=== PATIENT | male | born 1985 | race Caucasian/White ===

== ENCOUNTER 2022-11-10 11:00 | Day surgery (SDC) | payer OTHER ==
[2022-11-10] MEDS ORDERED: EXPAREL 133 MG/10 ML VIAL IJ ONE (11:01)
[2022-11-10] MEDS ORDERED: Pepcid 20 MG VIAL IV ONE ×2 (11:14→11:21)
[2022-11-10] MEDS ORDERED: Reglan 10 MG/2 ML IV ONE (11:14)
[2022-11-10] MEDS ORDERED: Lactated Ringers 1,000 ML IV ONE ×2 (11:21→14:12)
[2022-11-10] MEDS ORDERED: CLINDAMYCIN-D5W 900 MG/50 ML*** 900 MG/50 ML BAG IV ONE (11:21)
[2022-11-10] MEDS ORDERED: Reglan 10 MG/2 ML ONE (11:21)
[2022-11-10] MEDS ORDERED: CLINDAMYCIN-D5W 900 MG/50 ML*** 900 MG/50 ML BAG IV SCH (11:30)
[2022-11-10] MEDS ORDERED: Lactated Ringers 1,000 ML IV SCH (11:30)
--- NOTE | 2022-11-10 11:31 | HP ---
PROCEDURE DATE: 11/10/2022 HISTORY OF PRESENT ILLNESS: 37 year-old gentleman with pain, swelling, redness pilonidal area since , a lot worse now. Can't sit on the area. PAST MEDICAL HISTORY: CURRENT MEDICATIONS: He has been on some buprenorphine-naloxone. Has been on Ketorolac. Has been on Clindamycin. ALLERGIES: NKDA. PAST SURGICAL HISTORY: Had foot surgery in the past. FAMILY HISTORY: Negative with regards to this problem. SOCIAL HISTORY: History of smoking. Occasional alcohol use. REVIEW OF SYSTEMS: 14 systems reviewed pertinent for as noted above. No chest pain or palpitations. Other systems negative or noncontributory other than above and per preadmission questionnaire. PHYSICAL EXAMINATION: BMI 36. Height 5' 9". GENERAL: Uncomfortable. Otherwise, no acute distress. HEENT: Sclerae nonicteric. EOM intact. Oropharynx mucus membranes moist. NECK: No JVD. CHEST: Equal excursion. Nonlabored breathing. CVS: Regular rate and rhythm. ABDOMEN: Soft, nondistended. EXTREMITIES: No significant edema. NEURO: Alert and oriented, moving extremities symmetrically. PSYCH: Appropriate mood and affect. SKIN: Has got a pilonidal redness/infection/abscess. IMPRESSION: 1. INFECTED PILONIDAL CYST AND/OR ABSCESS. RECOMMEND EXCISION AND PACKING. Risks of bleeding and infection possible requiring packing; risk of hematoma, seroma, aches, pains, burning, or numbness; risk of anesthesia, deep vein thrombosis, pulmonary embolus, or pneumonia, but not limited to; risk of need for packing; risk of nonhealing, 90% healing in 12 weeks, 5% healing slower, 5% fail to heal and may require other intervention or other procedures or referrals. The importance of keeping the hair away from the wound. Pilonidal sheet shown in the office. The importance of packing, packing down to the base of the wound and minimizing aggressive activity early on. He understands and agrees to the planned procedure. Will proceed with excisional biopsy infected pilonidal cyst and/or abscess with packing as an outpatient later today.
[2022-11-10 11:52] VITALS: RESP 14; O2SAT 99
[2022-11-10 11:59] VITALS: TEMP 98.7
[2022-11-10] MEDS ORDERED: Xylocaine-Mpf 2% 5 Ml Vial ONE (13:13)
[2022-11-10] MEDS ORDERED: BRIDION 200MG/2ML IV ONE ×2 (13:13→14:27)
[2022-11-10] MEDS ORDERED: DIPRIVAN 200 MG/20 ML IV ONE (13:13)
[2022-11-10] MEDS ORDERED: Decadron 4 MG INJ ONE (13:13)
[2022-11-10] MEDS ORDERED: Zemuron 100 MG/10 ML ONE (13:13)
[2022-11-10] MEDS ORDERED: TORAdol 30 mg Injection ONE (13:13)
[2022-11-10] MEDS ORDERED: Zofran 4 MG/2 ML VIAL ONE (13:13)
[2022-11-10] MEDS ORDERED: Versed 2 MG/2 ML Injection ONE (13:17)
[2022-11-10] MEDS ORDERED: OFIRMEV 100 ML IV ONE (13:19)
[2022-11-10] MEDS ORDERED: Magnesium Sulfate 1 GM/2 ML VIAL ONE (13:19)
[2022-11-10] MEDS ORDERED: Ketamine HCl 50 MG/ML ONE (13:23)
[2022-11-10] MEDS ORDERED: BREVIBLOC 100 MG/10 ML IV ONE (13:25)
[2022-11-10] MEDS ORDERED: ULTRAM 50 MG PO ONE (15:38)
[2022-11-10 16:08] VITALS: BP 116/64; PULSE 69
--- NOTE | 2022-11-10 16:56 | OP ---
SURGERY DATE: 11/10/2022 SURGERY TIME: 1348 PREOPERATIVE DIAGNOSIS: 1. INFECTED PILONIDAL CYST AND ASBCESS. POSTOPERATIVE DIAGNOSIS: 1. INFECTED PILONIDAL CYST AND ASBCESS. PROCEDURE: 1. Excision of infected pilonidal cyst and abscess approximately 9 cm with a copious amount of irrigation and packing. SURGEON: Dr. Zoltan Limon. ANESTHESIA: General. ESTIMATED BLOOD LOSS: Minimal. INDICATIONS: As indicated above. Risks and benefits explained in detail, but not limited to. Consent obtained. DESCRIPTION OF PROCEDURE AND FINDINGS: The patient was taken to the OR. Initially prone position. Prepped and draped in the usual sterile fashion. After official time-out, no disagreement in planned procedure. Going out around the large infected area dissecting also including a couple inferior pits to minimize recurrence. Dissection was carried down the subcutaneous large abscess cavity. All of the cyst cavity was excised and passed off. Hemostasis controlled with some pinpoint cautery. Good hemostasis was noted. Wound was irrigated out. It was felt it was too infected to warrant closing, so then packed with some Kerlix gauze. Patient tolerated the procedure well. There was no family to discuss any findings with. He was transferred to recovery in stable condition.
== END 2022-11-10 15:55 | disposition home or self-care (01) ==
LOC: SDC 11:00 → LAB 11:00 → EDSTATUS 11:05 → SDC 15:55
PROVIDERS: ATTEND Surgery
DX: L05.01 Pilonidal cyst with abscess (principal)
CPT/HCPCS: J1100; J1885; J2250; J2405; J2704; J3475; A9270-GY